=== PATIENT | female | born 1960 | race African-American/Black ===

== ENCOUNTER 2020-04-20 14:02 | Emergency (ER) | payer OTHER ==
[~2020-04-20] VITALS: Ht 162.6 cm; Wt 81.6 kg
[2020-04-20] MEDS ORDERED: Tetanus/Diptheria/Pertussis IM ONE (14:15)
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
[2020-04-20 14:20] VITALS: BP 140/88
--- NOTE | 2020-04-20 14:20 | NUR ---
ED Nurse Note: Patient allowed staff to assess wound on back of neck. Wound is approximately 1 inch laceration. No active bleeding, clean borders
--- NOTE | 2020-04-20 14:27 | NUR ---
ED Nurse Note: Patient taken to CT
--- NOTE | 2020-04-20 14:40 | NUR ---
ED Nurse Note: Patient returned from CT
[2020-04-20] MEDS ORDERED: HYDROcodone/Acetamin 5/325 tab ORAL ONE (14:45)
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
--- NOTE | 2020-04-20 14:48 | NUR ---
ED Nurse Note: Patient non-cooperative, states she wants to sleep when attempting to give her medication. Patient refusing medication.
--- NOTE | 2020-04-20 14:53 | NUR ---
ED Nurse Note: Xray at bedside, patient not cooperating with store facility technician. ERPA notified, store facility technician will come back at later time to attempt Xray.
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
--- NOTE | 2020-04-20 15:31 | Diagnostic Imaging Report ---
Indications: Pain, head trauma Technique: Spiral acquisitions obtained through the brain. Angled axial and coronal 5 x 5 mm slices were reconstructed. Total dose length product 1072 mGycm. CTDI vol(s) 53 mGy. Dose reduction achieved using automated exposure control Comparison: None. Findings: No acute intracranial hemorrhage or edema. No mass effect nor midline shift. Normal size ventricles and extra axial CSF spaces. Normal mathew-white differentiation. Visualized orbits and sinuses are unremarkable. The calvarium is intact. The mastoids are clear. Impression: Negative The CT scanner at [facility] is accredited by the [employer] and the scans are performed using protocols designed to limit radiation exposure to as low as reasonably achievable to attain images of sufficient resolution adequate for diagnostic evaluation.
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
[2020-04-20 16:18] VITALS: BP 138/84
[2020-04-20] MEDS ORDERED: TYLENOL EXTRA500 MG ORAL (16:28)
[2020-04-20 16:49] VITALS: BP 138/84
--- NOTE | 2020-04-20 16:49 | NUR ---
ER DISCHARGE NOTE: Patient is cleared to be discharged per ERPA, pt is aox4, on room air, with stable vital signs. pt was given dc and instructions, pt was able to verbalize understanding. Laceration irrigated and staple placed by ERPA. pt id band removed. Patient refused to fill out homeless [employer], refused list of resources stating "I don't need it". Patient is able to ambulate with steady gait. pt took all belongings.
== END 2020-04-20 16:49 | disposition home or self-care (01) ==
LOC: EDBD 14:02 → EMR 14:31
DX: S01.01XA Laceration without foreign body of scalp, initial encounter (principal); M25.512 Pain in left shoulder; M54.2 Cervicalgia; I10 Essential (primary) hypertension; J45.909 Unspecified asthma, uncomplicated; E11.9 Type 2 diabetes mellitus without complications; Z88.0 Allergy status to penicillin; G40.909 Epilepsy, unspecified, not intractable, without status epilepticus; Y04.2XXA Assault by strike against or bumped into by another person, initial encounter; Y93.89 Activity, other specified; Y92.521 Bus station as the place of occurrence of the external cause; Z59.0 Homelessness
CPT/HCPCS: 12001; 70450; 72125; 90471; 90715; Z7502; 99284